=== PATIENT | female | born 1975 ===

== ENCOUNTER 2019-02-13 12:31 | Emergency (ER) | payer MEDICAID, OTHER ==
[2019-02-13 12:43] VITALS: BP 139/87; PULSE 65; RESP 18; TEMP 98.1; O2SAT 100
--- NOTE | 2019-02-13 14:04 | C.PDOC ---
History Of Present Illness Patient reports 3 week history of discoloration of the palm of left hand. (-) fever, (+) ROM 43 y/o female pt presents to the ER c/o small area of yellow discoloration on her left palm. Pt is concerned because she does not know the cause. Pt assume it was due to her vitamins, but she stopped taking it weeks ago. Pt denies fever, c hills and any other associated sx or complaints at this time. Time Seen by Provider: 02/13/19 12:57 Chief Complaint (Nursing): Abnormal Skin Integrity History Per: Patient History/Exam Limitations: clinical condition Onset/Duration Of Symptoms: Days (3 week) Severity: None Past Medical History Reviewed: Historical Data, Nursing Documentation, Vital Signs Vital Signs: Last Vital Signs Temp 98.1 F 02/13/19 12:41 Pulse 65 02/13/19 12:41 Resp 18 02/13/19 12:41 BP 139/87 02/13/19 12:41 Pulse Ox 100 02/13/19 12:41 Primary Care Provider: Beck Chao Surg - Medical History PMH: No Chronic Diseases Surgical History: No Surg Hx Family History: States: Unknown Family Hx - Social History Hx Tobacco Use: No Hx Alcohol Use: Yes Hx Substance Use: No - Immunization History Hx Tetanus Toxoid Vaccination: No Hx Influenza Vaccination: Yes Hx Pneumococcal Vaccination: No Review Of Systems Constitutional: Negative for: Fever, Chills Musculoskeletal: Positive for: Other (discoloration of left palm) Physical Exam - Physical Exam Appears: Well, Non-toxic Skin: Normal Color, Other (left palm (+) yellowish tint) Nose: Normal Neck: Normal Respiratory: Normal Breath Sounds Gastrointestinal/Abdominal: Normal Exam Extremity: Normal ROM Neurological/Psych: Oriented x3 Gait: Steady ED Course And Treatment O2 Sat by Pulse Oximetry: 100 (RA) Pulse Ox Interpretation: Normal Disposition - Disposition Disposition: HOME/ ROUTINE Disposition Time: 14:10 Condition: STABLE Additional Instructions: Follow up with your PMD for further evaluation Return to ED if any increase symptoms Follow up with dermatology Instructions: Skin Rash Forms: [employer] (Algerian) Print Language: OCCITAN - POA Present On Arrival: None - Clinical Impression Clinical Impression: Skin irritation, Discolored skin - PA / [employer] / Resident Statement MD/DO has reviewed & agrees with the documentation as recorded. - Scribe Statement The provider has reviewed the documentation as recorded by the Scribe Nowak Do All medical record entries made by the Marshallibmichael were at my direction and personally dictated by me. I have reviewed the chart and agree that the record accurately reflects my personal performance of the history, physical exam, medical decision making, and the department course for this patient. I have also personally directed, reviewed, and agree with the discharge instructions and disposition.
== END 2019-02-13 14:14 | disposition home or self-care (01) ==
LOC: C.ER 12:31
DX: L98.8 Other specified disorders of the skin and subcutaneous tissue (principal)